=== PATIENT | male | born 1980 | race Caucasian/White ===

== ENCOUNTER 2017-08-24 08:40 | Emergency (ER) | payer SELFPAY ==
[~2017-08-24] VITALS: Ht 175.3 cm; Wt 79.5 kg
[2017-08-24 08:50] VITALS: BP 151/83; TEMP 98.1
[2017-08-24] MEDS ORDERED: KEPPRA1000 MG PO (08:54)
[2017-08-24] MEDS ORDERED: INDERAL80 MG PO (08:54)
[2017-08-24] MEDS ORDERED: FLOMAX 0.40.4 MG/CAP PO (08:55)
[2017-08-24] MEDS ORDERED: NORCO 325 MG-51 TAB PO (09:59)
[2017-08-24 11:08] VITALS: PULSE 68
== END 2017-08-24 11:09 | disposition home or self-care (01) ==
LOC: COL.ER 08:40
DX: S22.41XA Multiple fractures of ribs, right side, initial encounter for closed fracture (principal); I10 Essential (primary) hypertension; N40.0 Benign prostatic hyperplasia without lower urinary tract symptoms; F17.210 Nicotine dependence, cigarettes, uncomplicated; Z87.81 Personal history of (healed) traumatic fracture; W01.0XXA Fall on same level from slipping, tripping and stumbling without subsequent striking against object, initial encounter; Y92.488 Other paved roadways as the place of occurrence of the external cause
CPT/HCPCS: A9284; J2270